=== PATIENT | male | born 1960 | race Caucasian/White ===

== ENCOUNTER 2021-10-12 20:25 | Observation (INO) | payer OTHER ==
[~2021-10-12 20:25] MED LIST: Iopamidol 370 76% 100 ML VIAL ONE
[2021-10-12] MEDS ORDERED: levETIRAcetam 500 MG/5 ML VIAL ONE (20:53)
[2021-10-12] MEDS ORDERED: Dexamethasone 10 MG/ML VIAL ONE (20:53)
[2021-10-12] MEDS ORDERED: Aspirin Chewable 81 MG TAB ONE (20:53)
[2021-10-12] MEDS ORDERED: cefTRIAXone\\ROCEPHIN 2 GM VIAL ONE (20:58)
[2021-10-12 21:02] LABS: Hemoglobin 16.3 g/dL (14.0-18.0); Mean Corpuscular HGB CONC 33.6 g/dL (32.0-36.0); Mean Corpuscular Hemoglobin 31.1 pg (27.0-31.0); Mean Corpuscular Volume 92.6 fL (78.0-98.0); Mean Platelet Volume 6.1 fL (7.4-10.4); Platelet Count 283 thou/uL (130-400); RBC Distribution Width 12.5 % (11.5-14.5); Red Blood Cell (RBC) Count 5.22 mill/uL (4.70-6.10); White Blood Cell (WBC) Count 9.3 thou/uL (4.8-10.8)
[2021-10-12 21:24] LABS: ALT (SGPT) 28 U/L (8-55); AST (SGOT) 24 U/L (5-34); Albumin 4.2 g/dL (3.4-4.8); Alkaline Phosphatase 56 U/L (40-110); BUN (Urea Nitrogen) 15 mg/dL (8.4-25.7); Band 12 % (5-11); Bilirubin, Total 0.8 mg/dL (0.2-1.2); CK (CPK) 83 U/L (30-200); Calc. Creatinine Clearance 0 mL/min (70-130); Calcium 8.7 mg/dL (7.8-10.44); Carbon Dioxide 22 mmol/L (23-31); Globulin 2.8 g/dL (2.4-3.5); Glucose 110 mg/dL (80-115); Lipase 17 U/L (8-78); Lymphocytes 10 % (21-51); MDiff Complete? YES; Monocytes 18 % (0-10); Neutrophil 59 % (42-75)
[2021-10-12] MEDS ORDERED: Azithromycin 500 MG VIAL ONE (22:32)
[2021-10-12 22:46] LABS: Chloride 104 mmol/L (98-107); Sodium 137 mmol/L (136-145)
[2021-10-12 22:48] LABS: Anion Gap 17 mmol/L (10-20)
[2021-10-12] MEDS ORDERED: Ondansetron PF 4 MG/2 ML Vial IVP PRN (23:51)
[2021-10-12] MEDS ORDERED: Ondansetron ODT 4 MG TAB PO PRN (23:51)
[2021-10-12] MEDS ORDERED: Acetaminophen 650 MG Suppository PR PRN ×2 (23:51)
[2021-10-12] MEDS ORDERED: Albuterol 200 PUFF (6.7GM INHALER) INH PRN (23:51)
[2021-10-12] MEDS ORDERED: Acetaminophen 325 MG TAB PO PRN ×2 (23:51)
[2021-10-12] MEDS ORDERED: Benzonatate 100 MG CAP PO PRN (23:51)
[2021-10-13 00:29] VITALS: BMI 31.4
[2021-10-13] MEDS: Sodium Chloride 0.9% 1,000 ML IV SCH ×2 (00:47→14:52)
[2021-10-13 01:10] LABS: Troponin I Less than 0.010 ng/mL (< 0.028)
[2021-10-13 02:08] LABS: SARS-CoV-2 NAA Rapid Test DETECTED (NotDetected)
[2021-10-13] MEDS ORDERED: Acetaminophen 325 MG TAB PO PRN (02:56)
[2021-10-13] MEDS ORDERED: Albuterol 200 PUFF (6.7GM INHALER) INH PRN (02:56)
[2021-10-13] MEDS ORDERED: Acetaminophen 650 MG Suppository PR PRN (02:56)
[2021-10-13] MEDS ORDERED: Benzonatate 100 MG CAP PO PRN (02:56)
[2021-10-13 03:25] LABS: #Lymphocytes 1.1 thou/uL (1.20-3.40); #Monocytes 0.3 thou/uL (0.11-0.59); #Neutrophils 5.8 thou/uL (1.40-6.50); %Basophils 0.2 % (0.0-1.0); %Eosinophils 0.2 % (0.0-10.0); %Lymphocytes 14.9 % (21.0-51.0); %Monocytes 3.8 % (0.0-10.0); %Neutrophils 80.9 % (42.0-75.0); Hemoglobin 15.3 g/dL (14.0-18.0); Mean Corpuscular HGB CONC 32.9 g/dL (32.0-36.0); Mean Corpuscular Hemoglobin 30.9 pg (27.0-31.0); Mean Platelet Volume 6.3 fL (7.4-10.4); Platelet Count 279 thou/uL (130-400); RBC Distribution Width 12.6 % (11.5-14.5); Red Blood Cell (RBC) Count 4.94 mill/uL (4.70-6.10); White Blood Cell (WBC) Count 7.1 thou/uL (4.8-10.8)
[2021-10-13 03:45] LABS: Anion Gap 12 mmol/L (10-20); BUN (Urea Nitrogen) 15 mg/dL (8.4-25.7); Calc. Creatinine Clearance 105 mL/min (70-130); Calcium 8.7 mg/dL (7.8-10.44); Carbon Dioxide 25 mmol/L (23-31); Chloride 104 mmol/L (98-107); Glucose 149 mg/dL (80-115); Potassium 4.2 mmol/L (3.5-5.1); Sodium 137 mmol/L (136-145)
[2021-10-13 03:49] LABS: Troponin I Less than 0.010 ng/mL (< 0.028)
[2021-10-13] MEDS ORDERED: Zinc Sulfate 220 MG CAP PO SCH (09:00)
[2021-10-13] MEDS ORDERED: Cholecalciferol (Vitamin D3) 400 UNITS TAB PO SCH (09:00)
[2021-10-13] MEDS ORDERED: Ascorbic Acid 500 mg Chewable Tablet PO SCH (09:00)
[2021-10-13] MEDS ORDERED: Enoxaparin Sodium 40 MG/0.4 ML SYRINGE SC SCH (09:00)
[2021-10-13 17:48] VITALS: BP 141/65; TEMP 98.7
== END 2021-10-13 20:14 | disposition home or self-care (01) ==
LOC: ERS 20:25 → 2NO 22:47 → INTOOBSV 22:47
PROVIDERS: ADMIT Internal Medicine; ATTEND Internal Medicine
DX: U07.1 COVID-19 (principal); R55 Syncope and collapse; J96.01 Acute respiratory failure with hypoxia; I08.0 Rheumatic disorders of both mitral and aortic valves; Z79.899 Other long term (current) drug therapy
CPT/HCPCS: 36415; 71275; 80048; 80053; 82550; 83605; 83690; 83880; 84146; 84484; 85025; 87040; 87804; 93005; 93306; G0378; J0456; J0696; J1100; J1650; J1953; J7050; Q9967; U0002